=== PATIENT | male | born 1985 | race Caucasian/White ===

== ENCOUNTER 2021-10-14 17:38 | Emergency (ER) | payer BC, SELFPAY ==
[2021-10-14 19:01] LABS: Urine Blood Trace-intact (Negative); Urine Glucose Negative (Negative); Urine Protein Negative (Negative); Urine Specific Gravity 1.015 (1.005-1.030)
--- NOTE | 2021-10-14 20:11 | RAD REPORT ---
EXAM DESCRIPTION: RAD - Chest Single View - 10/14/2021 7:57 pm CLINICAL HISTORY: DYSPNEA COMPARISON: None TECHNIQUE: AP portable chest image was obtained 10/14/2021 7:57 pm . FINDINGS: Lungs are clear. Heart and vasculature are normal. No measurable pleural effusion and no p neumothorax. No acute bony abnormality seen. No acute aortic findings suspected. Bilateral nipple pie rcings are place. IMPRESSION: No acute cardiopulmonary process.
[2021-10-14 20:20] LABS: Absolute Lymphocytes (CBC) 2.5 K/uL (0.7-4.9); Hematocrit 42.5 % (39.6-49.0); Lymphocytes % 18.1 % (15.3-44.8); MPV 7.8 fL (7.6-11.3); RBC Red Blood Cell Count 4.99 M/uL (4.33-5.43)
[2021-10-14 20:55] LABS: Urine Bacteria <20 /HPF (NONE SEEN)
[2021-10-14 21:00] LABS: BUN Blood Urea Nitrogen 12 mg/dL (7-18); Bicarbonate 29 mmol/L (21-32); Glucose Level 99 mg/dL (74-106); Potassium 3.6 mmol/L (3.5-5.1); Sodium Level 141 mmol/L (136-145)
[2021-10-14 21:01] LABS: Troponin High Sensitivity < 3.00 pg/mL (<58.9)
--- NOTE | 2021-10-14 21:12 | ER ---
Nurse's Notes [facility] Name: Brent Crooks Age: 36 yrs Sex: Male : 1985 Arrival Date: 10/14/2021 Time: 17:38 Bed 17 Private MD: Diagnosis: Shortness of breath;Acute cystitis without hematuria Presentation: 10/14 17:55 Chief complaint: Patient states: "Since yesterday morning I have been SOB and today I ab2 almost passed out. I have been having penile discharge." Pt denies any other urinary symptoms. Coronavirus screen: Vaccine status: Patient reports being unvaccinated. Client denies travel out of the [place] in the last 14 days. difficulty breathing, muscle pain, runny nose, Client presents with at least one sign or symptom that may indicate coronavirus-19. Standard/surgical mask placed on the client. Provider contacted for isolation considerations. Ebola Screen: Patient negative for fever greater than or equal to 101.5 degrees Fahrenheit, and additional compatible Ebola Virus Disease symptoms Patient denies exposure to infectious person. Patient denies travel to an Ebola-affected area in the 21 days before illness onset. No symptoms or risks identified at this time. Initial Sepsis Screen: Does the patient meet any 2 criteria? No. Patient's initial sepsis screen is negative. Does the patient have a suspected source of infection? No. Patient's initial sepsis screen is negative. Risk Assessment: Do you want to hurt yourself or someone else? Patient reports no desire to harm self or others. Onset of symptoms is unknown. 17:55 Method Of Arrival: Ambulatory ab2 18:11 Acuity: STEPHANIE 3 ab2 Triage Assessment: 18:11 General: Appears in no apparent distress. uncomfortable, Behavior is calm, cooperative, ab2 appropriate for age. Respiratory: Reports shortness of breath Onset: The symptoms/episode began/occurred yesterday, the patient has mild shortness of breath. Historical: - Allergies: 18:11 PENICILLINS; ab2 18:11 Amoxicillin; ab2 - Home Meds: 18:11 None [Active]; ab2 - PMHx: 18:11 None; ab2 - Immunization history:: Adult Immunizations. - Social history:: Smoking status: Smoking status: Reported history of juuling and/or vaping. Screenin:24 Abuse screen: Denies threats or abuse. Nutritional screening: No deficits noted. lr4 Tuberculosis screening: No symptoms or risk factors identified. Fall Risk None identified. Assessment: 17:58 General: Appears in no apparent distress. comfortable, Behavior is calm, cooperative, ab2 appropriate for age. Pain: Denies pain. Respiratory: Reports shortness of breath Airway is patent Respiratory effort is even, unlabored, 18:42 Cardiovascular: Rhythm is regular. lr4 19:52 General: Appears in no apparent distress. comfortable, well groomed, well developed, tk1 well nourished, Behavior is calm, cooperative, appropriate for age. Pain: Denies pain. Neuro: Level of Consciousness is awake, alert, obeys commands, Oriented to person, place, time, Animal Behaviorist are equal bilaterally Moves all extremities. Gait is steady, Speech is normal. Cardiovascular: Capillary refill < 3 seconds is brisk in bilateral fingers Clubbing of nail beds is absent Rhythm is regular. Respiratory: Airway is patent Respiratory effort is even, unlabored, Respiratory pattern is regular, symmetrical, Breath sounds are clear bilaterally. GI: No deficits noted. No signs and/or symptoms were reported involving the gastrointestinal system. : No signs and/or symptoms were reported regarding the genitourinary system. EENT: No deficits noted. No signs and/or symptoms were reported regarding the EENT system. Derm: No deficits noted. No signs and/or symptoms reported regarding the dermatologic system. Musculoskeletal: No deficits noted. No signs and/or symptoms reported regarding the musculoskeletal system. 19:58 Reassessment: Patient states, he has a penile discharge too. tk1 20:35 Reassessment: No changes from previously documented assessment. Patient and/or family tk1 updated on plan of care and expected duration. Pain level reassessed. Patient is alert, oriented x 3, equal unlabored respirations, skin warm/dry/pink. 21:41 Reassessment: D/C per PA order. Discharge/Prescription instructions given to patient. tk1 Verbalized understanding. Vital Signs: 17:55 BP 141 / 106; Pulse 84; Resp 17; Temp 98.7(O); Pulse Ox 100% ; Weight 78.02 kg; Height ab2 5 ft. 7 in. (170.18 cm); Pain 0/10; 18:30 BP 127 / 103; Pulse 67; Resp 18; Pulse Ox 100% on R/A; lr4 19:52 BP 104 / 83 LA Supine (auto/reg); Pulse 64 MON; Resp 18 S; Temp 98.5(O); Pulse Ox 100% tk1 on R/A; Pain 0/10; 20:35 BP 131 / 87 LA Supine (auto/reg); Pulse 72; Resp 18; Pulse Ox 100% on R/A; Pain 6/10; tk1 17:55 Body Mass Index 26.94 (78.02 kg, 170.18 cm) ab2 ED Course: 17:38 Patient arrived in ED. as 17:58 Triage completed. ab2 17:58 Arm band placed on left wrist. ab2 18:14 Patient placed in an exam room, on a stretcher. ss 18:22 Kandis Morejon, RN is Primary Nurse. lr4 18:42 Patient has correct armband on for positive identification. Bed in low position. Call lr4 light in reach. Side rails up X 1. Door closed. Noise minimized. Warm blanket given. 18:42 No provider procedures requiring assistance completed. lr4 18:55 Freedom Pandya PA is PHCP. jr8 18:55 Jerardo Hendrix MD is Attending Physician. jr8 19:05 Report given to damaris james. lr4 19:18 Attending Physician role handed off by Jerardo Hendrix MD missy 19:18 Stanley Avina MD is Attending Physician. [facility] 19:59 XRAY Chest (1 view) In Process Unspecified. EDMS 20:06 Urine Microscopic Only Sent. tk1 20:06 Troponin High Sensitivity Sent. tk1 20:06 Basic Metabolic Panel Sent. tk1 20:06 CBC with Diff Sent. tk1 21:12 Urine Culture Sent. tk1 Administered Medications: 21:14 Not Given (Physician Discretion): Rocephin (cefTRIAXone) 1 grams IV at calculated rate jr8 once; Given slow IV push per pharmacy instructions 21:21 Drug: Rocephin (cefTRIAXone) 500 mg Route: IM; Site: right gluteus; tk1 21:41 Follow up: Response: No adverse reaction tk1 21:22 Drug: Zithromax (azithromycin) 1 grams Route: PO; tk1 21:41 Follow up: Response: No adverse reaction tk1 Outcome: 21:11 Discharge ordered by MD. jr8 21:42 Patient left the ED. tk1 Signatures: Dispatcher [employer] EDMS Stanley Avina MD MD cha Martinez, Amelia as Smirch, Shelby, HOLLIE RN Freedom Dueñas PA PA jr8 Damaris Doran tk1 Sylvain Stark ab2 Kandis Morejon RN RN lr4 Corrections: (The following items were deleted from the chart) 18:11 17:55 Acuity: STEPHANIE 4 ab2 ab2 18:11 18:11 Allergies: No Known Allergies; ab2 ab2
--- NOTE | 2021-10-14 21:12 | EDPHYS ---
Physician Documentation [facility] Name: Brent Crooks Age: 36 yrs Sex: Male : 1985 Arrival Date: 10/14/2021 Time: 17:38 Bed 17 Private MD: ED Physician Stanley Avina HPI: 10/14 20:53 This 36 yrs old Male presents to ER via Ambulatory with complaints of Shortness Of jr8 Breath, Abdominal Pain. 20:53 Onset: The symptoms/episode began/occurred acutely, yesterday. The patient's shortness jr8 of breath has no apparent modifying factors. Associated signs and symptoms: The patient has no apparent associated signs or symptoms. Severity of symptoms: At their worst the symptoms were mild in the emergency department the symptoms are unchanged. The patient has not experienced similar symptoms in the past. The patient has not recently seen a physician. Patient stated that for the past day or so has had on and off shortness of breath that is intermittent in nature. Denies recent illness, cough, congestion, runny nose, fever, sore throat. Did also say that he has had some mild suprapubic pain when he coughs. Feels like he may have a urinary tract infection as well.. Historical: - Allergies: 18:11 PENICILLINS; ab2 18:11 Amoxicillin; ab2 - Home Meds: 18:11 None [Active]; ab2 - PMHx: 18:11 None; ab2 - Immunization history:: Adult Immunizations. - Social history:: Smoking status: Smoking status: Reported history of juuling and/or vaping. ROS: 20:53 Eyes: Negative for injury, pain, redness, and discharge, ENT: Negative for injury, jr8 pain, and discharge, Neck: Negative for injury, pain, and swelling, Cardiovascular: Negative for chest pain, palpitations, and edema, Back: Negative for injury and pain, MS/Extremity: Negative for injury and deformity, Skin: Negative for injury, rash, and discoloration, Neuro: Negative for headache, weakness, numbness, tingling, and seizure. 20:53 Respiratory: Positive for shortness of breath, Negative for cough, dyspnea on exertion, sputum production, wheezing. 20:53 Abdomen/GI: Positive for abdominal pain, Negative for nausea, vomiting, and diarrhea. Exam: 20:53 Eyes: Pupils equal round and reactive to light, extra-ocular motions intact. Lids and jr8 lashes normal. Conjunctiva and sclera are non-icteric and not injected. Cornea within normal limits. Periorbital areas with no swelling, redness, or edema. ENT: Nares patent. No nasal discharge, no septal abnormalities noted. Tympanic membranes are normal and external auditory canals are clear. Oropharynx with no redness, swelling, or masses, exudates, or evidence of obstruction, uvula midline. Mucous membranes moist. Neck: Trachea midline, no thyromegaly or masses palpated, and no cervical lymphadenopathy. Supple, full range of motion without nuchal rigidity, or vertebral point tenderness. No Meningismus. Cardiovascular: Regular rate and rhythm with a normal S1 and S2. No gallops, murmurs, or rubs. Normal PMI, no JVD. No pulse deficits. Respiratory: Lungs have equal breath sounds bilaterally, clear to auscultation and percussion. No rales, rhonchi or wheezes noted. No increased work of breathing, no retractions or nasal flaring. Abdomen/GI: Soft, non-tender, with normal bowel sounds. No distension or tympany. No guarding or rebound. No evidence of tenderness throughout. Back: No spinal tenderness. No costovertebral tenderness. Full range of motion. Skin: Warm, dry with normal turgor. Normal color with no rashes, no lesions, and no evidence of cellulitis. MS/ Extremity: Pulses equal, no cyanosis. Neurovascular intact. Full, normal range of motion. Neuro: Awake and alert, GCS 15, oriented to person, place, time, and situation. Cranial nerves II-XII grossly intact. Motor strength 5/5 in all extremities. Sensory grossly intact. Vital Signs: 17:55 BP 141 / 106; Pulse 84; Resp 17; Temp 98.7(O); Pulse Ox 100% ; Weight 78.02 kg; Height ab2 5 ft. 7 in. (170.18 cm); Pain 0/10; 18:30 BP 127 / 103; Pulse 67; Resp 18; Pulse Ox 100% on R/A; lr4 19:52 BP 104 / 83 LA Supine (auto/reg); Pulse 64 MON; Resp 18 S; Temp 98.5(O); Pulse Ox 100% tk1 on R/A; Pain 0/10; 20:35 BP 131 / 87 LA Supine (auto/reg); Pulse 72; Resp 18; Pulse Ox 100% on R/A; Pain 6/10; tk1 17:55 Body Mass Index 26.94 (78.02 kg, 170.18 cm) ab2 MDM: 19:18 Patient medically screened. missy 21:10 Data reviewed: vital signs, nurses notes, lab test result(s), radiologic studies, plain jr8 films. Data interpreted: Pulse oximetry: on room air is 100 %. Interpretation: normal. Counseling: I had a detailed discussion with the patient and/or guardian regarding: the historical points, exam findings, and any diagnostic results supporting the discharge/admit diagnosis, lab results, radiology results, the need for outpatient follow up, a family practitioner, to return to the emergency department if symptoms worsen or persist or if there are any questions or concerns that arise at home. 10/14 19:01 Order name: Urine Dipstick-Ancillary; Complete Time: 19:43 [facility] 10/14 19:43 Order name: CBC with Diff; Complete Time: 20:56 [facility] 10/14 19:43 Order name: Basic Metabolic Panel; Complete Time: 21:08 [facility] 10/14 19:43 Order name: Troponin High Sensitivity; Complete Time: 21:08 [facility] 10/14 19:43 Order name: Urine Microscopic Only; Complete Time: 21:08 [facility] 10/14 20:58 Order name: Urine Culture [facility] 10/14 18:48 Order name: XRAY Chest (1 view); Complete Time: 20:56 rn 10/14 19:43 Order name: EKG - Nurse/Tech; Complete Time: 20:34 jr Administered Medications: 21:14 Not Given (Physician Discretion): Rocephin (cefTRIAXone) 1 grams IV at calculated rate jr8 once; Given slow IV push per pharmacy instructions 21:21 Drug: Rocephin (cefTRIAXone) 500 mg Route: IM; Site: right gluteus; tk1 21:41 Follow up: Response: No adverse reaction tk1 21:22 Drug: Zithromax (azithromycin) 1 grams Route: PO; tk1 21:41 Follow up: Response: No adverse reaction tk1 Disposition Summary: 10/14/21 21:11 Discharge Ordered Location: Home jr8 Problem: new jr8 Symptoms: have improved jr8 Condition: Stable jr8 Diagnosis - Shortness of breath jr8 - Acute cystitis without hematuria jr8 Followup: jr8 - With: Private Physician - When: 2 - 3 days - Reason: Recheck today's complaints, Continuance of care, Re-evaluation by your physician Discharge Instructions: - Discharge Summary Sheet jr8 - Shortness of Breath, Adult jr8 - Urinary Tract Infection, Adult jr8 Forms: - Medication Reconciliation Form jr8 - Thank You Letter jr8 - Antibiotic Education jr8 - Prescription Opioid Use jr8 Prescriptions: - Doxycycline Monohydrate 100 mg Oral Tablet - take 1 tablet by ORAL route every 12 hours for 10 days; 20 tablet; Refills: 0, jr8 Product Selection Permitted Addendum: 10/16/2021 05:30 Co-signature as Attending Physician, Stanley Avina MD I agree with the assessment and c mijares plan of care. Signatures: Dispatcher [employer] EDStanley Alva MD MD cha Roszak, Josh, PA PA jr8 Damaris Doran tk1 Sylvain Stark ab2 Corrections: (The following items were deleted from the chart) 10/14 18:11 18:11 Allergies: No Known Allergies; ab2 ab2
[2021-10-14] MEDS ORDERED: CEFTRIAXONE 500 MG/VIAL ONE (21:19)
[2021-10-14] MEDS ORDERED: LIDOCAINE 1% MPF 5 ML VIAL ONE (21:19)
[2021-10-14] MEDS ORDERED: AZITHROMYCIN 250 MG TAB ONE (21:20)
[2021-10-14 22:21] VITALS: O2SAT 100
[2021-10-14 22:23] VITALS: TEMP 98.5
[2021-10-14 22:24] VITALS: BP 131/87
--- NOTE | 2021-10-15 07:43 | EKG ---
Test Date: 2021-10-14 Test Time: 20:35:55 Putter In: RONNY MEASUREMENT RESULTS: Intervals: Rate: 71 ME: 160 QRSD: 86 QT: 376 QTc: 408 Saxe: P: 42 ME: 160 QRS: 63 T: 40 INTERPRETIVE STATEMENTS: Normal sinus rhythm Normal ECG No previous ECG available for comparison Electronically Signed On 10-15-21 07:41:23 CDT by Jose Francisco Menendez
== END 2021-10-14 21:42 | disposition home or self-care (01) ==
LOC: ER 17:38
DX: N30.00 Acute cystitis without hematuria (principal); Z88.0 Allergy status to penicillin; Z88.1 Allergy status to other antibiotic agents
CPT/HCPCS: 36415; 71045; 80048; 81003; 81015; 84484; 85025; 87086; 87088; 93005; 96372; 99283; J0696